=== PATIENT | female | born 1995 | race Caucasian/White ===

== ENCOUNTER → 2022-03-05 | Outpatient (REF) | payer OTHER | LOC: M LAB REF 12:39 | PROVIDERS: ATTEND Physician Assistant | DX: B34.9 Viral infection, unspecified (principal) ==

== ENCOUNTER 2022-03-21 06:05 | Emergency (ER) | payer OTHER ==
[~2022-03-21] VITALS: Ht 162.6 cm; Wt 90.9 kg
[2022-03-21] MEDS ORDERED: TRAZ-252 PO (06:19)
[2022-03-21] MEDS ORDERED: OMEP-173 PO (06:19)
[2022-03-21] MEDS ORDERED: VENL75TA2 PO (06:19)
[2022-03-21] MEDS ORDERED: CETI-24 PO (06:19)
[2022-03-21] MEDS ORDERED: SYNT25TA PO (06:19)
[2022-03-21] MEDS ORDERED: MUCI1TAB16 PO (06:20)
[2022-03-21 08:26] VITALS: BP 127/60
== END 2022-03-21 08:28 | disposition home or self-care (01) ==
LOC: M ED 06:05
DX: J06.9 Acute upper respiratory infection, unspecified (principal); K21.9 Gastro-esophageal reflux disease without esophagitis; E03.9 Hypothyroidism, unspecified; Z79.899 Other long term (current) drug therapy; Z88.5 Allergy status to narcotic agent

== ENCOUNTER 2023-04-10 21:16 | Outpatient (CLI) | payer OTHER ==
[~2023-04-10] VITALS: Ht 162.6 cm; Wt 100.2 kg
[~2023-04-10 21:16] MED LIST: CETI-24 PO; MUCI1TAB16 PO; OMEP-173 PO; SYNT25TA PO; TRAZ-252 PO; VENL75TA2 PO
== END 2023-04-10 22:35 | disposition home or self-care (01) ==
LOC: M LDO 21:16
PROVIDERS: ATTEND Obstetrics & Gynecology
DX: O26.893 Other specified pregnancy related conditions, third trimester (principal); N89.8 Other specified noninflammatory disorders of vagina; Z3A.39 39 weeks gestation of pregnancy
CPT/HCPCS: 59025; G0463